=== PATIENT | female | born 1990 | race Caucasian/White ===

== ENCOUNTER 2023-10-24 17:13 | Emergency (ER) | payer OTHER ==
[~2023-10-24] VITALS: Ht 170.2 cm; Wt 65.9 kg
[2023-10-24 18:20] VITALS: BP 128/90; PULSE 87; TEMP 97.4; O2SAT 96
[2023-10-24] MEDS ORDERED: HYDR-3973 PO (20:52)
[2023-10-24 21:32] VITALS: RESP 16
[2023-10-24] MEDS: ondansetron 4mg rapidly disintigrating tab PO ONE (21:32)
[2023-10-24] MEDS: ketorolac trometh inj. 60 MG/2 ML VIAL IM ONE (21:32)
[2023-10-24] MEDS: HYDROcodone/acetaminophen 5mg/325mg tablet PO ONE (21:32)
== END 2023-10-24 22:31 | disposition home or self-care (01) ==
LOC: ER 17:14
DX: S52.124A Nondisplaced fracture of head of right radius, initial encounter for closed fracture (principal); S52.122A Displaced fracture of head of left radius, initial encounter for closed fracture; W19.XXXA Unspecified fall, initial encounter; Y93.89 Activity, other specified; Y92.89 Other specified places as the place of occurrence of the external cause; Y99.8 Other external cause status
CPT/HCPCS: 29105; 73080; 96372; 99283; J1885; A4565; A6446; A6449